=== PATIENT | male | born 1975 | race Caucasian/White ===

== ENCOUNTER 2020-04-04 01:28 | Emergency (ER) | payer MEDICAID ==
--- NOTE | 2020-04-04 02:23 | EDM.PDOC ---
ED HPI GENERAL MEDICAL PROBLEM - General Chief Complaint: Cardiovascular Problem Stated Complaint: Palpatations Time Seen by Provider: 04/04/20 02:00 Source of Information: Reports: Patient, RN - History of Present Illness INITIAL COMMENTS - FREE TEXT/NARRATIVE: Patient states 2 months of intermittent palpitations when lying down. Normally he is able to "walk it off", but tonight the palpitations have persisted. He endorses SOB with the palpitations, but denies any CP, N/V/D, abdominal pain, cough, or fevers. He is an everyday cigarette smoker, alcohol user, and also admits to using meth (he used earlier today). He occasionally uses caffeine, but not an excessive amount. 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 Location: Reports: Chest Associated Symptoms: Reports: Shortness of Breath - Related Data Allergies Allergy/AdvReac Type Severity Reaction Status Date / Time No Known Allergies Allergy Verified 04/04/20 02:27 Home Meds: Home Meds NK [No Known Home Meds] 04/04/20 [History] ED ROS GENERAL - Review of Systems Review Of Systems: See Below Constitutional: Reports: No Symptoms HEENT: Reports: No Symptoms Respiratory: Reports: Shortness of Breath Cardiovascular: Reports: Palpitations Endocrine: Reports: No Symptoms GI/Abdominal: Reports: No Symptoms : Reports: No Symptoms Musculoskeletal: Reports: No Symptoms Skin: Reports: No Symptoms Neurological: Reports: No Symptoms (patient had bilateral hand numbness, resolved now) Psychiatric: Reports: Anxiety Hematologic/Lymphatic: Reports: No Symptoms ED EXAM, GENERAL - Physical Exam Exam: See Below Exam Limited By: No Limitations General Appearance: Alert, No Apparent Distress, Anxious Ears: Normal External Exam Nose: Normal Inspection Head: Atraumatic Neck: Normal Inspection, Non-Tender, Full Range of Motion. No: Lymphadenopathy (R), Lymphadenopathy (L) Respiratory/Chest: No Respiratory Distress, Lungs Clear, Normal Breath Sounds, No Accessory Muscle Use Cardiovascular: Normal Peripheral Pulses, No Edema, No JVD, No Murmur, Tachycardia Peripheral Pulses: 3+: Carotid (L), Carotid (R), Radial (L), Radial (R), Posterior Tibial (L), Posterior Tibial (R) GI/Abdominal: Normal Bowel Sounds, Soft, Non-Tender (Male) Exam: Deferred Rectal (Males) Exam: Deferred Back Exam: Normal Inspection, Full Range of Motion Extremities: Normal Inspection, Normal Range of Motion, No Pedal Edema, Normal Capillary Refill Neurological: Alert, Oriented, Normal Cognition, No Motor/Sensory Deficits Psychiatric: Normal Affect, Normal Mood Skin Exam: Warm, Dry, Intact Lymphatic: No Adenopathy Course - Vital Signs Last Recorded V/S: Last Vital Signs Temp 98.4 F 04/04/20 01:49 Pulse 90 04/04/20 02:45 Resp 19 04/04/20 02:45 BP 133/88 04/04/20 02:45 Pulse Ox 97 04/04/20 02:45 - Orders/Labs/Meds Orders: Active Orders 24 hr Category Date Time Status EKG Documentation Completion [RC] ASDIRECTED Care 04/04/20 01:59 Active Chest 2V [CR] Stat Exams 04/04/20 02:15 Ordered Sodium Chloride 0.9% [Normal Saline] 1,000 ml Med 04/04/20 02:29 Ordered IV .BOLUS Medication Orders Sodium Chloride (Normal Saline) 1,000 mls @ 1,000 mls/hr IV .BOLUS ONE Stop: 04/04/20 03:28 Last Admin: 04/04/20 02:43 Dose: 1,000 mls/hr Documented by: LETY Labs: Laboratory Tests 04/04/20 04/04/20 04/04/20 Range/Units 00:58 01:58 01:58 WBC 9.0 (4.0-11.0) K/uL RBC 5.02 (4.50-6.50) M/uL Hgb 15.3 (13.0-18.0) g/dL Hct 44.6 (40.0-54.0) % MCV 89 (76-96) fL MCH 30.5 (27.0-32.0) pg MCHC 34.3 (31.0-35.0) g/dL RDW 13.1 (11.0-16.0) % Plt Count 274 (150-400) K/uL MPV 9.6 (6.0-10.0) fL Neut % (Auto) 65.3 (45.0-70.0) % Lymph % (Auto) 25.2 (20.0-40.0) % [place] % (Auto) 8.1 (3.0-10.0) % Eos % (Auto) 1.2 (1.0-5.0) % Baso % (Auto) 0.2 (0.0-0.5) % Neut # (Auto) 5.84 (2.00-7.50) K/uL Lymph # (Auto) 2.26 (1.50-4.00) K/uL [place] # (Auto) 0.73 (0.20-0.80) K/uL Eos # (Auto) 0.11 (0.04-0.40) K/uL Baso # (Auto) 0.02 (0.02-0.10) K/uL D-Dimer, Quantitative < 100 (0-400) ng/mL Sodium 138 (136-145) mmol/L Potassium 4.2 (3.5-5.1) mmol/L Chloride 103 (98-107) mmol/L Carbon Dioxide 27.1 (21.0-32.0) mmol/L Anion Gap 12.1 (5.0-15.0) mmol/L BUN 15 (8-26) mg/dL Creatinine 0.93 (0.70-1.30) mg/dL Est Cr Clr Drug Dosing 112.17 mL/min Estimated GFR (MDRD) > 60 (>60) MLS/MIN BUN/Creatinine Ratio 16.1 (6-25) Glucose 98 (74-100) mg/dL Calcium 9.4 (8.5-10.1) mg/dL Total Bilirubin 0.2 (0.0-1.0) mg/dL AST 17 (15-37) U/L ALT 26 (12-78) U/L Alkaline Phosphatase 89 (46-116) U/L Troponin I < 0.017 (0.000-0.060) ng/mL Total Protein 7.7 (6.4-8.2) g/dL Albumin 4.1 (3.4-5.0) g/dL Globulin 3.6 (2.2-4.2) g/dL Albumin/Globulin Ratio 1.1 (0.8-2.0) Meds: Medications Generic Name Dose Route Start Last Admin Trade Name Freq PRN Reason Stop Dose Admin Sodium Chloride 1,000 mls @ 1,000 mls/hr 04/04/20 02:29 04/04/20 02:43 Normal Saline IV 04/04/20 03:28 1,000 mls/hr .BOLUS ONE Administration Departure - Departure Time of Disposition: 02:58 Disposition: Home, Self-Care 01 Condition: Good Clinical Impression: Palpitations Instructions: Palpitations, [id number] Referrals: PCP,None [Primary Care Provider] - Forms: ED Department Discharge Additional Instructions: Stop using meth. Increase non caffeinated fluids. Follow up with your primary doctor. Return to ED for any increased or new concerning symptoms. Sepsis Event Note (ED) - Evaluation Sepsis Screening Result: No Definite Risk - Focused Exam Vital Signs: Vital Signs Temp Pulse Resp BP Pulse Ox 04/04/20 02:45 90 19 133/88 97 04/04/20 02:20 100 21 H 129/91 H 97 04/04/20 02:00 109 H 21 H 133/89 97 04/04/20 01:49 98.4 F 102 H 20 140/93 H 98 04/04/20 01:39 98.4 F 102 H 20 140/93 H 98 - My Orders Last 24 Hours: My Active Orders 04/04/20 01:59 EKG Documentation Completion [RC] ASDIRECTED 04/04/20 02:15 Chest 2V [CR] Stat 04/04/20 02:29 Sodium Chloride 0.9% [Normal Saline] 1,000 ml IV .BOLUS - Assessment/Plan Last 24 Hours: My Active Orders 04/04/20 01:59 EKG Documentation Completion [RC] ASDIRECTED 04/04/20 02:15 Chest 2V [CR] Stat 04/04/20 02:29 Sodium Chloride 0.9% [Normal Saline] 1,000 ml IV .BOLUS Assessment:: Discussed with patient establishing primary care, he is agreeable and will follow up in the next couple of weeks or sooner if symptoms warrant. He will return to ED for any increased or new concerning symptoms. He verbalized understanding of discharge instructions. DDX: OR, PE, anxiety, pneumonia. Negative ddimer, troponin, CXR.
[2020-04-04] MEDS: Sodium Chloride 0.9% 1,000 ML IV ONE (02:43)
--- NOTE | 2020-04-04 08:08 | CR ---
Date of Service: 04/04/20 Clinical Data: palpitations. PA AND LATERAL CHEST: The heart size is normal. The lungs are clear. No pneumothorax. No pleural effusions. No evidence of acute intrathoracic disease. [id number] [facility]
== END 2020-04-04 03:05 | disposition home or self-care (01) ==
LOC: LB.ED 01:28
DX: R00.2 Palpitations (principal)
CPT/HCPCS: 36415; 71046; 80053; 84484; 85025; 85379; 93005; 99285; J7030

== ENCOUNTER 2024-04-07 12:13 | Emergency (ER) | payer MEDICAID ==
[2024-04-07] MEDS: hydrOXYzine HCl 25 MG Tab PO ONE (13:00)
[2024-04-07 13:08] LABS: BASOPHILS ABSOLUTE AUTO 0.01 K/uL (0.02-0.10); BASOPHILS PERCENT AUTO 0.2 % (0.0-0.5); EOSINOPHILS ABSOLUTE AUTO 0.13 K/uL (0.04-0.40); EOSINOPHILS PERCENT AUTO 2.2 % (1.0-5.0); HEMATOCRIT 40.1 % (40.0-54.0); HEMOGLOBIN 13.7 g/dL (13.0-18.0); LYMPHOCYTES ABSOLUTE AUTO 1.62 K/uL (1.50-4.00); LYMPHOCYTES PERCENT AUTO 27.5 % (20.0-40.0); MEAN CORPUSCULAR HEMOGLOBIN 30.1 pg (27.0-32.0); MEAN CORPUSCULAR HGB CONC 34.2 g/dL (31.0-35.0); MEAN CORPUSCULAR VOLUME 88 fL (76-96); MEAN PLATELET VOLUME 9.2 fL (6.0-10.0); MONOCYTES PERCENT AUTO 11.9 % (3.0-10.0); NEUTROPHILS ABSOLUTE AUTO 3.43 K/uL (2.00-7.50); NEUTROPHILS PERCENT AUTO 58.2 % (45.0-70.0); PLATELET COUNT,PLT 235 K/uL (150-400); RED BLOOD CELL COUNT 4.55 M/uL (4.50-6.50); WHITE BLOOD CELL COUNT,WBC 5.9 K/uL (4.0-11.0)
[2024-04-07 13:40] LABS: A/G RATIO 1.2 (0.8-2.0); ALBUMIN 3.7 g/dL (3.4-5.0); ANION GAP 13.8 mmol/L (5.0-15.0); BILIRUBIN TOTAL 0.2 mg/dL (0.0-1.0); BUN/CREATININE RATIO 20.6 (6-25); CALCIUM 8.7 mg/dL (8.5-10.1); CARBON DIOXIDE,CO2 28.1 mmol/L (21.0-32.0); CREATININE 0.63 mg/dL (0.70-1.30); EST CRCL DRUG DOSING (CG) 158.53 mL/min; POTASSIUM,K 3.9 mmol/L (3.5-5.1); PROTEIN TOTAL,TP 6.9 g/dL (6.4-8.2); TROPONIN I HIGH SENSITIVITY 5.1 pg/ml (<=60.4)
== END 2024-04-07 14:00 | disposition home or self-care (01) ==
LOC: LB.ED 12:13
DX: F41.9 Anxiety disorder, unspecified (principal); F17.210 Nicotine dependence, cigarettes, uncomplicated
CPT/HCPCS: 36415; 80053; 84484; 85025; 93005; 93010; 99284; 99285; A9270-GY